=== PATIENT | female | born 1970 | race Caucasian/White ===

== ENCOUNTER 2025-09-18 09:55 | Day surgery (SDC) | payer BC ==
[2025-09-17 12:15] VITALS: BMI 33.3
[2025-09-18] MEDS ORDERED: Bacitracin 1 PK ONE (10:06)
[2025-09-18] MEDS ORDERED: AFRIN NASAL MIST 15 ML BOT ONE ×2 (10:06→10:50)
[2025-09-18] MEDS ORDERED: Lidocaine 1% w/Epinephrine 1:200K 30 ML VIAL ONE (10:06)
[2025-09-18 10:51] LABS: Hematocrit 41.2 % (34.9-44.5)
[2025-09-18] MEDS ORDERED: PROPOFOL 40 ML ONE (10:54)
[2025-09-18] MEDS ORDERED: Lidocaine 1% (PF) 30 ML VIAL ONE (11:05)
[2025-09-18] MEDS ORDERED: Oxymetazoline HCl 0.05% (15 ML) ONE (11:15)
[2025-09-18] MEDS ORDERED: HYDROcodone/Acetaminophen 5/325 mg Tablet ONE (13:15)
== END 2025-09-18 14:10 | disposition home or self-care (01) ==
LOC: CSHSDC 09:55
PROVIDERS: ATTEND Otolaryngology Plastic Surgery within the Head & Neck
PROC: 095L0ZZ Destruction of Nasal Turbinate, Open Approach (ICD-10-PCS; principal; 2025-09-18)
PROC: 09BM0ZZ Excision of Nasal Septum, Open Approach (ICD-10-PCS; principal; 2025-09-18)
DX: J34.3 Hypertrophy of nasal turbinates (principal); J34.2 Deviated nasal septum; J34.89 Other specified disorders of nose and nasal sinuses; Z88.0 Allergy status to penicillin; Z88.2 Allergy status to sulfonamides; Z91.040 Latex allergy status
CPT/HCPCS: 85014; 93005; 93010; J1100; J2003; J2250; J2704; J3010